=== PATIENT | female | born 1955 | race Two or more races ===

== ENCOUNTER → 2019-11-17 | Emergency (ER) | payer OTHER ==
[~2019-11-17] VITALS: Ht 162.6 cm; Wt 74.8 kg
[~2019-11-17] MED LIST: HYDROcodone-ACET 10/325MG TAB PO ONE; cloNIDine HCL 0.1 MG TAB PO ONE
[2019-11-17 15:32] VITALS: BP 196/90
== END | disposition home or self-care (01) ==
LOC: ER 14:28 → EDBD 14:28
DX: S00.03XA Contusion of scalp, initial encounter (principal); S86.912A Strain of unspecified muscle(s) and tendon(s) at lower leg level, left leg, initial encounter; I10 Essential (primary) hypertension; Z90.710 Acquired absence of both cervix and uterus; V43.62XA Car passenger injured in collision with other type car in traffic accident, initial encounter; Y93.89 Activity, other specified; Y92.89 Other specified places as the place of occurrence of the external cause; Y99.8 Other external cause status
CPT/HCPCS: 70450; 71045; 72125; 73562